=== PATIENT | female | born 1955 | race Caucasian/White ===

== ENCOUNTER 2017-05-06 15:21 | Emergency (ER) | payer OTHER ==
[~2017-05-06] VITALS: Ht 149.9 cm; Wt 54.1 kg
[2017-05-06 15:29] VITALS: Ht 149.9 cm; Wt 54.1 kg
--- NOTE | 2017-05-06 15:38 | EMERGENCY ROOM VISIT NOTE ---
History Report prepared by Hubert: Josefa Hollins Under the Supervision of: Dr. Rogelio Butts M.D. First contact with patient: 15:26 Stated Complaint: HYPOGLYCEMIA History of Present Illness The patient is a 61 year old female who presents to the Emergency Room by EMS with complaints of episode of hypoglycemia occurring just prior to arrival. Per patient's daughter, the patient's sugar was 49 at the time of the episode. The patient was noncommunicable at the time of the episode. The patient happened to be near an ambulance when this episode occurred and they gave her Dextrose prior to bringing her ED. Presently the patient's blood sugar is 190. She denies any cough, chest pain, shortness of breath, numbness or weakness. The patient takes insulin but doesn't always eat with it. She has a history of carpal tunnel, COPD, quadruple bypass and diabetes. Source of History: patient, family Onset: just prior to arrival Position: other (generalized) Quality: other (hypoglycemia) Timing: other (episode) Associated Symptoms: No cough, No chest pain, No SOB, No weakness, No numbness Review of Systems See HPI for pertinent positives & negatives. A total of 10 systems reviewed and were otherwise negative. Past Medical & Surgical Medical Problems: (1) Carpal tunnel syndrome (2) COPD (chronic obstructive pulmonary disease) (3) Diabetes Surgical Problems: (1) History of quadruple bypass Old medical records were reviewed. Nurse's notes were reviewed and I agree with. Family History No pertinent family history stated. Social History Drug Use: none Housing Status: lives with family Current/Historical Medications Scheduled Amlodipine (Norvasc), 10 MG PO DAILY Aspirin (Aspirin Ec), 81 MG PO DAILY Carvedilol (Coreg), 6.25 MG PO BID Coenzyme Q10 (Ubidecarenone) (Coq-10), 100 MG PO DAILY Escitalopram Oxalate (Lexapro), 20 MG PO DAILY Fluticasone Prop/Salmeterol (Advair Diskus 250/50 60 Dose), 1 PUFF INH BID Folic Acid (Folvite), 1 MG PO DAILY Gabapentin (Neurontin), 600 MG PO HS Gabapentin (Neurontin), 300 MG PO AMPM Insulin Aspart 70/30 (Novolog Mix 70/30), 10 UNITS SC QAM Insulin Aspart 70/30 (Novolog Mix 70/30), 14 UNITS SC QPM Isosorbide Mononitrate Ext Rel (Imdur Ext Rel), 120 MG PO DAILY Levothyroxine Sodium (Synthroid), 50 MCG PO DAILY Melatonin (Melatonin Maximum Strengt), 10 MG PO HS Pantoprazole (Protonix), 40 MG PO DAILY Potassium Chloride (Micro-K Ext Rel), 10 MEQ PO BID Thiamine Hcl (Vitamin B-1), 50 MG PO DAILY Trazodone Hcl (Trazodone), 50 MG PO HS Allergies Coded Allergies: No Known Allergies (Unverified , 05/06/17) Physical Exam Vital Signs Date Time Temp Pulse Resp B/P (MAP) Pulse Ox O2 Delivery O2 Flow Rate FiO2 05/06/17 18:11 54 20 135/63 93 05/06/17 17:30 54 20 135/63 93 Room Air 05/06/17 16:03 47 05/06/17 15:29 48 16 135/63 93 Room Air Physical Exam General: Non-ill appearing older female in no acute distress. HEENT: Normal cephalic atraumatic. Pupils are equal round and reactive to light. Extraocular movements are intact. Oropharynx is pink with moist mucous membranes. No swelling of the mouth lips or tongue. Neck: Supple with a midline trachea. No meningeal signs or stiffness, no JVD or bruits. No Stridor. Chest: Clear to auscultation bilaterally. No wheezes or rhonchi. No increased work of breathing. Heart: regular rate and rhythm. Abdomen: Soft nontender, nondistended without rebound guarding or rigidity. Extremities: No cyanosis clubbing or edema. No calf tenderness or assymetry Spine/Back. Non tender to palpation. No CVA tenderness Skin: Good turgor without rashes. Neurologic exam: A;ert and oriented X3. Cranial nerves two through 12 are intact. Motor and sensation are intact and symmetrical throughout. Medical Decision & Procedures Laboratory Results 05/06/17 15:41 Red Blood Count 4.50, Mean Corpuscular Volume 84.2, Mean Corpuscular Hemoglobin 28.9, Mean Corpuscular Hemoglobin Concent 34.3, Mean Platelet Volume 11.9, Neutrophils (%) (Auto) 65.0, Lymphocytes (%) (Auto) 22.5, Monocytes (%) (Auto) 10.6, Eosinophils (%) (Auto) 1.4, Basophils (%) (Auto) 0.3, Neutrophils # (Auto ) 4.19, Lymphocytes # (Auto) 1.45, Monocytes # (Auto) 0.68, Eosinophils # (Auto ) 0.09, Basophils # (Auto) 0.02 05/06/17 15:41 Test 05/06/17 15:41 05/06/17 16:00 White Blood Count 6.44 K/uL (4.8-10.8) Red Blood Count 4.50 M/uL (4.2-5.4) Hemoglobin 13.0 g/dL (12.0-16.0) Hematocrit 37.9 % (37-47) Mean Corpuscular Volume 84.2 fL (80-100) Mean Corpuscular Hemoglobin 28.9 pg (25-34) Mean Corpuscular Hemoglobin Concent 34.3 g/dl (32-36) Platelet Count 183 K/uL (130-400) Mean Platelet Volume 11.9 fL (7.4-10.4) Neutrophils (%) (Auto) 65.0 % Lymphocytes (%) (Auto) 22.5 % Monocytes (%) (Auto) 10.6 % Eosinophils (%) (Auto) 1.4 % Basophils (%) (Auto) 0.3 % Neutrophils # (Auto) 4.19 K/uL (1.4-6.5) Lymphocytes # (Auto) 1.45 K/uL (1.2-3.4) Monocytes # (Auto) 0.68 K/uL (0.11-0.59) Eosinophils # (Auto) 0.09 K/uL (0-0.5) Basophils # (Auto) 0.02 K/uL (0-0.2) RDW Standard Deviation 42.5 fL (36.4-46.3) RDW Coefficient of Variation 13.9 % (11.5-14.5) Immature Granulocyte % (Auto) 0.2 % Immature Granulocyte # (Auto) 0.01 K/uL (0.00-0.02) Anion Gap 10.0 mmol/L (3-11) Est Creatinine Clear Calc Drug Dose 34.2 ml/min Estimated GFR () 51.9 Estimated GFR (Non- 44.8 BUN/Creatinine Ratio 17.8 (10-20) Calcium Level 8.5 mg/dl (8.5-10.1) Bedside Troponin I < 0.030 ng/ml (0-0.045) Laboratory studies as stated above per my review. Medications Administered Medications (Trade) Dose Ordered Sig/Milagro Route Start Time Stop Time Status Last Admin Dose Admin Potassium Chloride (Klor-Con M10) 40 meq NOW STAT PO 05/06/17 17:09 05/06/17 17:10 DC 05/06/17 17:29 40 MEQ Potassium Chloride (Klor-Con M10) 40 meq NOW STAT PO 05/06/17 18:02 05/06/17 18:03 DC 05/06/17 18:08 40 MEQ ECG Indication: other (hypoglycemia) Rate (beats per minute): 46 Rhythm: sinus bradycardia Findings: Q waves (Inferior), other (non specific T-wave abnormality) Comparison ECG Date: no prior available ED Course 1527: Past medical records reviewed. The patient was evaluated in room B7, and a complete history and physical examination were performed. 1648: The patient is resting comfortably and currently eating. 1709: Potassium Chloride 40 meq PO. 1714: The patient is finishing up her meal. 1802: Potassium Chloride 40 meq PO. 1806: Upon reevaluation, the patient is resting comfortably. I discussed the results and treatment plan with the patient. She verbalized agreement of the treatment plan. The patient was discharged home. Medical Decision Differential diagnoses include: hypoglycemia, arrhythmia, electrolyte metabolic abnormality, infection. This patient comes in as described above. She was placed in room B7. She is here for treatment and evaluation of an episode where she got hypoglycemic. She got better after receiving IV dextrose and her blood sugar here was in the 190s. IV access established was fed a meal and multiple blood tests was obtained while she was observed. EKG shows sinus bradycardia with some nonspecific changes but no definite acute ischemia, There are no old EKGs available for comparison. the patient remained stable while she was here. Potassium came back low 2.6. She was given potassium chloride 40 mEq by mouth here as well as 40 mEq to take home to take before bedtime a couple hours. She also ate food here including a banana. Upon recheck of her blood sugar, she was in the 160s and she felt great . The rest of her blood work looks okay . she feels good and like to go home and have her take 10 mEq of potassium chloride twice a day for the next week . she should up with her doctor when she gets home and should check her blood sugar frequently. I recommended that she may want to decrease her insulin dosage to 2/3 the current dosing and see how her blood sugars run and to check them frequently. Ensure that she eats enough after she takes them. Follow up with her doctor when she gets home. Medication Reconcilliation Current Medication List: was personally reviewed by me Blood Pressure Screening Patient's blood pressure: Normal blood pressure Impression Primary Impression: Hypoglycemia Additional Impressions: Hypokalemia Episode of altered consciousness Scribe Attestation The scribe's documentation has been prepared under my direction and personally reviewed by me in its entirety. I confirm that the note above accurately reflects all work, treatment, procedures, and medical decision making performed by me. Departure Information Dispostion Home / Self-Care Prescriptions Potassium Chloride (MICRO-K EXT REL) 10 Meq Cap 10 MEQ PO BID for 7 Days, #14 CAP Prov: Rogelio Butts M.D. 05/06/17 Forms HOME CARE DOCUMENTATION FORM, IMPORTANT VISIT INFORMATION, WORK / SCHOOL INSTRUCTIONS Additional Instructions Check your blood sugar frequently and before bedtime. Ensure that she eat adequately after taking insulin Return if: Recurrence of symptoms, further problems with her blood sugar, fever or chills, any new problems or concerns Take an extra 40 mEq of potassium chloride this evening and increase your dietary potassium. Take additional potassium chloride 20 mEq once a day for the next Week Follow-up with your doctor when he gets home for recheck and recheck of your blood work Problem Qualifiers
[2017-05-06] MEDS ORDERED: PANT40TA PO (16:22)
[2017-05-06] MEDS ORDERED: THIA100T11 PO (16:22)
[2017-05-06] MEDS ORDERED: FOLI1TAB7 PO (16:22)
[2017-05-06] MEDS ORDERED: ESCI1TAB10 PO (16:22)
[2017-05-06] MEDS ORDERED: CARV6.252 PO (16:22)
[2017-05-06] MEDS ORDERED: MELATAB2 PO (16:22)
[2017-05-06] MEDS ORDERED: LEVO50TA PO (16:22)
[2017-05-06] MEDS ORDERED: ADVIN25/60 INH (16:22)
[2017-05-06] MEDS ORDERED: ISOS120T5 PO (16:22)
[2017-05-06] MEDS ORDERED: COEN100C11 PO (16:22)
[2017-05-06] MEDS ORDERED: NVLGI7030 SC ×2 (16:22)
[2017-05-06] MEDS ORDERED: AMLO-114 PO (16:22)
[2017-05-06] MEDS ORDERED: NRN/300 PO ×2 (16:22)
[2017-05-06] MEDS ORDERED: ASPI81TA28 PO (16:22)
[2017-05-06] MEDS ORDERED: TRAZ50TA35 PO (16:22)
[2017-05-06 16:23] LABS: BASO % 0.3 %; BASO ABS # 0.02 K/uL (0-0.2); COMPLETE YES; EOS % 1.4 %; HEMATOCRIT 37.9 % (37-47); IG% 0.2 %; LYMPH % 22.5 %; LYMPH ABS # 1.45 K/uL (1.2-3.4); MEAN CELL VOLUME 84.2 fL (80-100); MEAN CORPUSCULAR HEMOGLOBIN 28.9 pg (25-34); MEAN CORPUSCULAR HGB CONC 34.3 g/dl (32-36); MEAN PLATELET VOLUME 11.9 fL (7.4-10.4); MONO % 10.6 %; PLATELET COUNT 183 K/uL (130-400); WHITE BLOOD COUNT 6.44 K/uL (4.8-10.8)
[2017-05-06 16:45] LABS: BUN/CREATININE RATIO 17.8 (10-20); CALCIUM 8.5 mg/dl (8.5-10.1); CREATININE 1.28 mg/dl (0.60-1.20); POTASSIUM 2.6 mmol/L (3.5-5.1)
[2017-05-06] MEDS ORDERED: POTASSIUM CHLORIDE 10 MEQ TABCR PO STA ×2 (17:09→18:02)
[2017-05-06] MEDS ORDERED: POTA10CA28 PO (18:04)
[2017-05-06 18:11] VITALS: BP 135/63; PULSE 54; O2SAT 93
== END 2017-05-06 18:12 | disposition home or self-care (01) ==
LOC: C.EDB 15:24
DX: E11.649 Type 2 diabetes mellitus with hypoglycemia without coma (principal); E87.6 Hypokalemia; R40.4 Transient alteration of awareness; R00.1 Bradycardia, unspecified; J44.9 Chronic obstructive pulmonary disease, unspecified; Z79.82 Long term (current) use of aspirin; Z79.4 Long term (current) use of insulin; Z79.899 Other long term (current) drug therapy